=== PATIENT | male | born 1960 ===

== ENCOUNTER 2017-04-09 18:42 | Emergency (ER) | payer MEDICAID, OTHER ==
[~2017-04-09] VITALS: Ht 182.9 cm; Wt 104.3 kg
[2017-04-09] MEDS ORDERED: LORazepam 2MG/ML-1ML VIAL IV ONE (19:15)
[2017-04-09 19:19] LABS: Basophils # (auto) 0.1 uL; Basophils % (auto) 1.1 % (0.0-2.0); CONDITION Y; Eosinophils # (auto) 0.1 uL; Hematocrit 41.2 % (41.0-53.0); Hemoglobin 14.1 g/dL (13.5-17.5); Lymphocytes # (auto) 1.8 uL; Lymphocytes % (auto) 15.9 % (10.0-50.0); Mean Corpuscular Hemoglobin 30.8 pg (28.0-32.0); Mean Corpuscular Hgb Conc. 34.2 g/dL (32.0-36.0); Mean Corpuscular Volume 90.1 fL (80.0-100.0); Mean Platelet Volume 7.2 fL (7.4-10.4); Monocytes # (auto) 0.6 uL; Monocytes % (auto) 5.6 % (0.0-12.0); Neutrophils # (auto) 8.6 uL; Neutrophils % (auto) 76.4 % (37.0-80.0); Platelet Count (auto) 447 10^3/uL (140-450); Red Cell Distribution Width 14.5 % (11.6-16.0); White Blood Cell 11.3 10^3/uL (4.4-10.8)
[2017-04-09 19:35] LABS: INR 3.2 (0.9-1.15); Partial Thromboplastin Time 43.2 sec (22.64-33.71)
[2017-04-09 19:39] VITALS: BP 125/67
[2017-04-09 19:45] LABS: Albumin 3.1 g/dL (3.4-5.0); BUN/Creatinine Ratio 45.5; Bilirubin, Total 0.2 mg/dL (0.2-1.0); Calcium 10.2 mg/dL (8.5-10.1); Potassium 4.1 mmol/L (3.5-5.1); Prothrombin Time 35.3 sec (9.37-12.3); Total Protein 7.4 g/dL (6.4-8.2)
[2017-04-09 19:56] LABS: B-Type Natriuretic Peptide 52.57 pg/mL (0-100)
== END 2017-04-10 00:53 | disposition home or self-care (01) ==
LOC: ER 18:52
DX: R60.0 Localized edema (principal); F41.9 Anxiety disorder, unspecified; F17.210 Nicotine dependence, cigarettes, uncomplicated
CPT/HCPCS: 36415; 70450; 71010; 80053; 80307; 83880; 84484; 85025; 85610; 85730; 93005; 96374; 99285; J2060; J7030